=== PATIENT | male | born 2005 | race Caucasian/White ===

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

== ENCOUNTER 2025-03-23 03:44 | Emergency (ER) | payer OTHER, SELFPAY ==
--- NOTE | 2025-03-23 03:47 | ED.LOWEXIN ---
HPI - Extremity Injury (Lower) General Time Seen by Provider: 03:47 Date Seen: 03/23/25 Chief Complaint: Extremity Pain/Injury, Lower Stated Complaint: Left ankle pain Time Seen by Provider: 03/23/25 03:47 Source: patient Mode of arrival: ambulatory Limitations: no limitations History of Present Illness HPI Narrative: 19-year-old male who presents today with left ankle pain. Patient was running up hill couple hours ago and inverted the ankle, says he felt a crack ?like when you crack your back?. Gradual onset of pain and swelling since then. No other injuries. Related Data Home Medications ?Medication ?Instructions ?Recorded ?Confirmed methylphenidate HCl 27 mg 27 mg PO DAILY 03/23/25 03/23/25 tablet,extended release 24 hr sertraline 50 mg tablet 50 mg PO DAILY 03/23/25 03/23/25 Allergies Allergy/AdvReac Type Severity Reaction Status Date / Time No Known Drug Allergies Allergy Verified 11/09/22 19:42 PFSH PFSH Social History Smoking Status: Never smoker How often do you have a drink containing alcohol: never How often do you have six or more drinks on one occasion: Never AUDIT-C Alcohol total score: 0 Non-prescribed substance use: denies use Exam Narrative: Exam Narrative: General: well nourished , NAD Head: Atraumatic and normocephalic ENT: External ears and external nose are normal Eyes: Conjunctiva clear, pupils are equal reactive, external ocular motions are intact Neck: Full spontaneous range of motion of the neck Lungs: No respiratory distress Musculoskeletal: Swelling over the distal anterior lateral lower leg, no tenderness of the medial or lateral malleolus Neurologic: No gross focal neurologic deficits Skin: No rashes Psych: Mood and affect are appropriate Const: Vital Signs, click to edit/add: Vital Signs - 24 hr 03/23/25 03:49 Temperature 98.3 F Pulse Rate [Right Pulse Oximeter] 89 Respiratory Rate 18 Blood Pressure [Le ft Upper Arm] 132/70 Pulse Oximetry 100 Oxygen Delivery Me thod Room Air Course Course ED Course: Patient seen examined, presents with left ankle pain after injury a couple hours ago, gradual onset pain and swelling. On exam there is tenderness and swelling over the distal fibula, no tenderness or swelling around the lateral or medial malleoli. Area of swelling is not typical for ankle sprain, consider distal fibula fracture. X-rays are ordered. Reevaluation(s) Time of Reevaluation #1: 04:10 Reevaluation #1: X-ray of the tibia and fibula demonstrates a nondisplaced distal distal fibula fracture. Patient will be nonweightbearing in a walking boot and follow-up with orthopedics. Vital Signs Vital signs: Initial Vital Signs Temperature 98.3 F 03/23/25 03:49 Temperature Source Temporal Artery Scan 03/23/25 03:49 Pulse Rate 89 03/23/25 03:49 Respiratory Rate 18 03/23/25 03:49 Blood Pressure 132/70 03/23/25 03:49 Blood Pressure Mean 90 03/23/25 03:49 Blood Pressure Position Sitting 03/23/25 03:49 Pulse Oximetry 100 03/23/25 03:49 Oxygen Delivery Method Room Air 03/23/25 03:49 Vital Signs Temperature 98.3 F 03/23/25 03:49 Pulse Rate 89 03/23/25 03:49 Respiratory Rate 18 03/23/25 03:49 Blood Pressure 132/70 03/23/25 03:49 Pulse Oximetry 100 03/23/25 03:49 Oxygen Delivery Method Room Air 03/23/25 03:49 Temperature 98.3 F 03/23/25 03:49 Pulse Rate 89 03/23/25 03:49 Respiratory Rate 18 03/23/25 03:49 Blood Pressure 132/70 03/23/25 03:49 Pulse Oximetry 100 03/23/25 03:49 Oxygen Delivery Method Room Air 03/23/25 03:49 Discharge Plan Discharge Clinical Impression: Fracture of distal end of fibula Patient Disposition: Home, Self-Care Condition: Stable Instructions: Ankle Fracture (DC) Additional Instructions: No weight-bearing, wear boot until you follow-up with orthopedics. Call orthopedics on Sunday for follow-up appointment [phone] Activity Level: No Weight Bearing Discharge Diet: Regular Prescriptions: No Action sertraline 50 mg tablet 50 mg PO DAILY Rx Instructions: take 1 1/2 tablets a day methylphenidate HCl 27 mg tablet extended release 24hr 27 mg PO DAILY Follow Up/Referrals: Provider,Not a Local [Non-Staff, Family Practice] Stand Alone Forms: MyHealth Info Instructions
--- OUTSIDE RECORDS SUMMARY | 2025-03-23 03:47 | XMS_ITS | Clinical Summary ---
Author Organization [facility] Address [address] [place] [id number] Care Team Providers Care Data Entry Assistant Name Role Phone Vani Marr Primary Care Provider Allergies No known active allergies Medications methylphenidate (Concerta) 27 mg extended-release tabletIndications :ADHD (attention deficit hyperactivity disorder), inattentive type Take 1 Tablet (27 mg) by mouth once daily. 15 Tablet 4 Active methylphenidate (Concerta) 27 mg extended-release tabletIndications :ADHD (attention deficit hyperactivity disorder), inattentive type Take 1 Tablet (27 mg) by mouth once daily. Osmotic 30 Tablet 4 Active methylphenidate ER (Concerta) 27 mg extended release tabletIndications :ADHD (attention deficit hyperactivity disorder), inattentive type Take 1 Tablet (27 mg) by mouth once daily. 30 Tablet 5 Active sertraline (ZOLOFT) 50 mg tabletIndications :Anxiety Take 1.5 Tablets (75 mg) by mouth once daily in the morning. 135 Tablet 1 5 Active methylphenidate ER (Concerta) 27 mg extended release tabletIndications :ADHD (attention deficit hyperactivity disorder), inattentive type Take 1 Tablet (27 mg) by mouth once daily. 30 Tablet 5 03/03/20 25 triamcinolone 0.1 % creamIndications: Rash and nonspecific skin eruption Use on the affected areas bid for 2-3 weeks. Do not use on the face. 80 g 5 02/26/20 hydrocortisone 2.5 % creamIndications: Rash and nonspecific skin eruption Apply topically to affected area(s) two times daily for 7 days. 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 Office Visit [facility] [address] [place] [address] Vani Marr PA Medication Management (concerta) 01/02/2025 Travel from Last 3 Months Immunizations Immunization Administration Dates Next Due AMB Influenza, IIV4 PF (=>6 mos Flulaval,Fluzone Fluarix)(Flu Clinic Only) 07/30/2018 DTaP 11/05/2006, 5,2005,06/26 DTaP-IPV (Kinrix) 05/24/2010 HIB-HepB (Comvax) 04/27/2006,2005,06/26/20 05 HPV 9 (Gardasil 9) 10/05/2023,10/11/2022 Hepatitis A (Peds) 04/22/2008,04/29/2007 Inactivated Polio Vaccine 2005,2005, 2005 Influenza A (H1N1), Inactiva duran (Age >=3 Years) 09/27/2009,08/26/2009 Influenza Virus, Unspecified 08/27/2006,07/23/20 06 Influenza, IIV3 (Age 6-35 mos) 3,06/30/2011,07/29/2010,08/19,08/27/2006,07/23/2006 Influenza, IIV4 09/17/2023, 2,10/11/2021,07/21,07/16/2019,07/28/2016,07/30/2015 Influenza, IIV4 (=>6mos) MDV 07/09/2017 Influenza,LAIV4 Live Intrana rufus (Flumist) 07/06/2014,06/12/2012,07/01/2009,08/03 MENINGOCOCCAL VACCINE 2 VIAL 2MO-55YO (MENVEO) 10/11/2021 MMR 04/27/2006 MMRV 05/24/2010 Meningococcal Vaccine (Menomune) 06/27/2016 Pneumococcal conj 7-Valent (Prevnar 7) 0 07/23/2006,2005,2005,06/26 Tdap 06/23/2022,06/27/2016 Varicella Vaccine 04/27/2006,04/27/2006 Family History Medical History Relation Name Comments Allergies Father Heart Disease Father cardiomyopathy Allergies Mother Relation Name Status Comments Father Mother Social History Tobacco Use Types Packs/Day Years Used Date Smoking Tobacco: Never Passive Smoke Exposure: Never Smokeless Tobacco: Never Tobacco Cessation:Counseling Given: Not Answered Alcohol Use Standard Drinks/Week Comments Yes 0 (1 standard drink = 0.6 oz pur e alcohol) 4-6 drinks every couple weeks PHQ-2 Answer Date Recorded PHQ-2 TOTAL SCORE 3 09/19/2024 Social Connections Answer Date Recorded Frequency of Communication with Friends and Fami ly 0 07/06/2023 Financial Resource Strain Answer Date R ecorded Difficulty of Paying Living Expenses 3 07/06/2023 Difficulty of Paying Living Expenses Not on file 07/06/2023 Food Insecurity Answer Date Recorded Worried About Running Out of Food in the Last Ye ar 1 07/06/2023 Transportation Needs Answer Date Record ed Lack of Transportation (Medical) 1 07/06/2023 Housing Stability Answer Date Recorded Unable to Pay for Housing in the Last Year 1 07/06/2023 Sex and Gender Information Value Date Recorded Sex Assigned at Not on file Legal Sex 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 Gender Identity Not on file Sexual Orientation Not on file Obstetrics History Last Filed Vital Signs Vital Sign Reading Time Taken Comments Blood Pressure 127/72 02/18/2025 6:20 PM CDT Pulse 72 02/18/2025 6:20 PM CDT Temperature 36.8 C (98.3 F) 02/18/2025 6:20 PM CDT Respiratory Rate 16 02/18/2025 6:20 PM CDT Oxygen Saturation 99% 02/18/2025 6:20 PM CDT Inhaled Oxygen Concentration - - Weight 75 kg (165 lb 6.4 oz) 02/18/2025 6:20 PM CDT Height 169.8 cm (5' 6.85) 09/07/2023 9:02 AM CS T Body Mass Index - - Plan of Treatment Health Maintenance Due Date Last Done Comments HIV for age 15-65 2020 Hepatitis C screening for age 18-79 2023 Well Child Check for age 3-20 10/11/2023 10/11/2022, 10/11/2021, 07/21/2020, Additional history exists HPV series for age 9-26 (3 - Male 3-dose series) 12/28/2023 10/05/2023, 10/11/2022 COVID-19 vaccine series ( season) 2024 05/29/2021, 05/08/2021 BMI (ht and wt on same day) for age 18+ 09/07/2024 09/07/2023, 07/30/2023 Influenza Vaccine (Season Ended) 2025 09/17/2023, 10/11/2022, 10/11/2021, Additional history exists Depression screening for age 12+ 09/19/2025 09/19/2024, 02/12/2023, 10/11/2022, Additional history exists Tetanus booster 06/23/2032 06/23/2022, 06/27/2016 Hepatitis B series for 19+ Completed 04/27, 2005, 2005 Pneumococcal series for age 6-49 Aged Out 07/23/2006, 2005, 2005, Additional history exists No longer eligible based on patient's age to complete this topic Meningococcal series for age 11-21 Completed 10/11/2021, 06/27/2016 Tdap Completed 06/23/2022, 06/27/2016 Procedures Procedure Name Priority Date/Time Associated Diagnosis Comments JAMIL PREP,SKIN,HAIR,NAIL Routine 02/18/2025 6:54 PM CDT Rash and nonspecific skin eruption from Last 3 Months Results * JAMIL PREP,SKIN,HAIR,NAIL (02/18/2025 6:54 PM CDT) OBSERVATION No fungal elements seen 03/03/2025 9:16 AM CDT [facility] Other SPECIMEN FROM SKIN OBTAINED BY SCRAPING / Unknown Non-Blood / Unknown 02/18/2025 6:54 PM CDT 02/18/2025 7:12 PM CDT us Paulie Stephens [facility] MICROBIOLOGY Final R esult [facility] [address] [place] [id number], from Last 3 Months Insurance [id number] [facility] [address] [facility] [id number] [place] [id number] Care Teams Data Entry Assistant Relationship Specialty Start Date End Date Vani Marr PA [address] [place] [address] PCP - General Family Practice 06/27/16
--- OUTSIDE RECORDS SUMMARY | 2025-03-23 03:47 | XMS_ITS | Clinical Summary ---
Author Organization [facility] Address [address] [place] [address] Care Team Providers Care Tip Stretcher Name Role Phone Unavailable Primary Care Provider Unavailabl e Source Comments You are receiving this document as you are listed as the primary care provider,follow-up provider, or the patient has been referred to you for consultation.This is in compliance with the Medicare and[facility] Incentive Program,which states Providers who transition their patient to another setting of careor provider of care or refers their patient to another provider of care shouldprovide summary care record for each transition of care or referral. [facility] Allergies No known active allergies Medications propranolol (INDERAL) 10 MG tablet TAKE 1 TABLET BY MOUTH 30 MINUTES PRIOR TO PERFORMANCE/ PRESENTATION 08/11/2024 Active methylphenidate (CONCERTA) 27 MG controlled release tablet Take 1 Tablet (27 mg) by mouth daily. 07/27/2024 Active Social History Tobacco Use Types Packs/Day Years Used Date Smoking Tobacco: Never Passive Smoke Exposure: Never Tobacco Cessation:Counseling Given: Not Answered Sex and Gender Information Value Date Recorded Sex Assigned at Not on file Legal Sex Male 5:52 AM CDT Gender Identity Not on file Sexual Orientation Not on file Last Filed Vital Signs Vital Sign Reading Time Taken Comments Blood Pressure 118/72 08/18/2024 2:22 PM CDT Pulse 95 08/18/2024 2:22 PM CDT Temperature 37.3 C (99.2 F) 08/18/2024 2:22 PM CDT Respiratory Rate 18 08/18/2024 2:22 PM CDT Oxygen Saturation 97% 08/18/2024 2:22 PM CDT Inhaled Oxygen Concentration - - Weight - - Height - - Body Mass Index - - Plan of Treatment Health Maintenance Due Date Last Done Comments Hep C Screening (Preventive Services) 2005 MenB Immunization Discussion 2005 HIV Screening (Preventive Services) 2021 Adult Preventive Visit 2023 HPV Vaccine (3 - Male 3-dose series) 12/28/2023 10/05/2023, 10/11/2022 HepB Vaccine (1) 2024 COVID-19 Vaccine (3 - season) 2024 05/29/2021, 05/08/2021 Influenza Vaccine (Season Ended) 2025 09/17/2023, 10/11/2022, 10/11/2021, Additional history exists DTaP/Tdap/Td Vaccine (8 - Tdap) 06/23/2032 06/23/2022, 06/27/2016, 05/24/2010, Additional history exists Zoster/Shingles Vaccine (1 of 2) 2055 Hib Vaccine Completed 04/27/2006, 07/30, 2005 Pneumococcal Vaccine Aged Out 07/23/2006, 2005, 2005, Additional history exists No longer eligible based on patient's age to complete this topic HepA Vaccine Completed 04/22/2008, 04/29/2007 IPV (Polio) Vaccine Completed 05/24/2010, 2005, 2005, Additional history exists MCV4 Vaccine Completed 10/11/2021, 06/27/2016 Insurance [id number] [place] [id number] [facility]
[2025-03-23 03:49] VITALS: BP 132/70; PULSE 89; RESP 18; TEMP 36.8; O2SAT 100; BMI 26.6
--- NOTE | 2025-03-23 03:51 | CRLHL7_ITS ---
For Patients: As a result of the Century Cures Act, medical imaging exams and procedure reports are released immediately into your electronic medical record. You may view this report before your referring provider. If you have questions, please contact your health care provider. Indication: Ankle pain status post trauma Technique: Two views the left tibia and fibula were acquired. Please be aware that this is not a formal ankle study. Comparison: There are no prior studies for comparison Findings: As described below Impression: 1. Obliquely oriented fracture of the distal fibula. No widening of the syndesmosis or mortise. Regional soft tissue swelling. 2. No fracture seen proximal to the distal fibula. 3. Regional soft tissue swelling. No gas within soft tissues. No radiopaque foreign body. Dictated by Dylon Puentes MD @ 03/23/2025 4:16:35 AM (Electronically Signed)
[2025-03-23 04:36] VITALS: BP 128/68; PULSE 84; RESP 18; TEMP 36.8; O2SAT 100
[2025-03-23 04:37] VITALS: BP 128/68; PULSE 84; RESP 18; TEMP 36.8
== END 2025-03-23 04:37 | disposition home or self-care (01) ==
PROVIDERS: Emergency Provider Family Medicine; PCP Physician Assistant Medical
DX: S82.832A Other fracture of upper and lower end of left fibula, initial encounter for closed fracture (principal); W18.30XA Fall on same level, unspecified, initial encounter; Y93.02 Activity, running
CPT/HCPCS: 73590; 99283; 99284

== ENCOUNTER 2025-04-03 07:57 | Day surgery (SDC) | payer OTHER, SELFPAY ==
[2025-04-03] VITALS (20 sets, daily range): BP systolic 120–162; BP diastolic 52–94; PULSE 69–103; RESP 14–18; TEMP 36.4–37.2; O2SAT 96–100; BMI 27.4
[2025-04-03] MEDS: LACTATED RINGERS 1000 ML 1,000 ML 100 ML IV (08:15)
[2025-04-03] MEDS: SODIUM CHLORIDE 0.9 % (FLUSH) 10 ML SYRINGE IVF (08:30)
--- NOTE | 2025-04-03 09:45 | CRLHL7_ITS ---
For Patients: As a result of the Cures Act, medical imaging exams and procedure reports are released immediately into your electronic medical record. You may view this report before your referring provider. If you have questions, please contact your health care provider. Indication: Left ankle ORIF Technique: Three fluoroscopic images of the left ankle. Fluoroscopic time 15.6 seconds. IMPRESSION: Fluoroscopic guidance for open reduction internal fixation of distal fibular fracture. Dictated by Baldomero Quintanilla MD @ 04/06/2025 11:22:22 AM (Electronically Signed)
--- NOTE | 2025-04-03 10:09 | W.PM.H&PU ---
History & Physical Update History & Physical Update H&P Reviewed and patient assessed: No changes noted
--- NOTE | 2025-04-03 10:26 | P.ANES_ITS ---
Anesthesia Charges Start Date/Time Anesthesia Start Date: 04/03/25 Anesthesia Start Time: 10:41 Stop Date/Time Anesthesia Stop Date: 04/03/25 Anesthesia Stop Time: 12:51 Coding CPT Codes CPT Codes: ANESTH LOWER LEG BONE SURG - 73997 ([id number]) P2 - PATIENT W/MILD SYST DISEASE, QK - TELEPHONE REPAIRER 2-4 CNCRNT ANES PROC, QX - TENNIS PROFESSIONAL SVC W/ MD MED DIRECTION
--- NOTE | 2025-04-03 10:26 | W.ANESCHARGE ---
Anesthesia Charges Start Date/Time Anesthesia Start Date: 04/03/25 Anesthesia Start Time: 10:41 Stop Date/Time Anesthesia Stop Date: 04/03/25 Anesthesia Stop Time: 12:51 Coding CPT Codes CPT Codes: ANESTH LOWER LEG BONE SURG - 49139 ([id number]) P2 - PATIENT W/MILD SYST DISEASE, QK - MANAGER POST 2-4 CNCRNT ANES PROC, QX - FAMILY AND CONSUMER EDUCATION TEACHER SVC W/ MD MED DIRECTION
--- NOTE | 2025-04-03 10:56 | PM.ORPRC ---
Procedure Note Date of procedure: 04/03/25 Procedure: PREOPERATIVE DIAGNOSES: 1. Left ankle distal fibula fracture (with bimalleolar equivalent) - unstable on stress imaging POSTOPERATIVE DIAGNOSES: 1. Left distal fibula fracture (with bimalleolar equivalent) - unstable on stress imaging PROCEDURE: 1. Left ankle lateral malleolus open reduction with internal fixation. 2. Intraoperative fluoroscopy <53 minutes (CPT CODE 7600) SURGEON: Shaquille Red MD TOP COATER: Shy Gallo P.A.-C.; Of note, an commercial real estate assistant was critical for this case to aid in patient positioning, leg manipulation, tissue retraction, closure, and splinting. ANESTHESIA: Spinal IMPLANTS: Arthrex distal fibular 4-hole locking plate with 2.7 distal locking screws and 3.5mm proximal locking and nonlocking screws; 3.0 mm lag screw. TOURNIQUET: 59 minutes at 250 mmHg. INDICATIONS: The patient is a pleasant 19-year-old male who sustained a left ankle injury in the recent. Workup included x-rays which revealed an unstable ankle fracture. Given these findings, surgery was recommended to stabilize the ankle and allow for anatomic healing. FINDINGS: Closed, displaced, bimalleolar equivalent, lateral malleolus ankle fracture. Intact syndesmosis. PROCEDURE: Following a thorough discussion of the risks, benefits, and alternatives to surgery; informed consent was obtained, and the operative extremity was marked. Regional nerve block was performed by anesthesia staff . The patient was then brought to the operating room, where spinal anesthesia was administered. Knee was then placed supine on the operating table. 2 g IV Ancef was administered preoperatively for prophylaxis . The operative extremity was then prepped and draped in the appropriate sterile fashion . A surgical time-out was performed confirming patient identity, surgical site, and surgical procedure. The operative extremity was elevated and exsanguinated, and the tourniquet inflated to 250 mmHg. A longitudinal incision was made overlying the distal fibula. Sharp incision was carried through skin and subcutaneous tissue, while protecting any crossing neurologic structures. The fracture was identified, and cleared of interposed periosteum and fracture hematoma. The surgical site was thoroughly irrigated with normal saline. The fracture was reduced and temporarily held with with a reduction clamp. A 3.0 mm cortical screw was placed across the fracture site in a lag fashion. Next a 4 hole distal fibular locking plate was selected and provisionally fixed to the distal fibula with MARINE Rojas. Fluoroscopic imaging was obtained which confirmed anatomic reduction of the fracture and good placement of the plate. The plate was fixed proximally with a nonlocking 3.5 mm cortical screw. It was then fixed distally with 2.7 mm unicortical locking screws. Two additional 3.5 mm locking screws were then placed proximally. Fluoroscopic imaging was used to confirm correct plate position and screw length. After the plate was secured, external rotation stress test was applied which confirmed intact send most this with no widening of the syndesmosis or medial clear space. Final fluoroscopic images were obtained which confirmed anatomic reduction of the fracture with good position of plate and screws. The wound was thoroughly irrigated with normal saline. Deep subcutaneous tissues were closed over the plate with 0 Vicryl [id number] interrupted sutures. The tourniquet was deflated. Total tourniquet time was 59 minutes. Hemostasis achieved with electrocautery. Wound was again irrigated with normal saline. Subcutaneous tissues were closed with 3-0 Vicryl for the subcutaneous tissues, and 2-0 stratafix for subcuticular layers completed the closure. Dermabond was applied followed by application of sterile dressings and a bulky Ramirez splint. The patient was awoken from anesthesia and transferred to the PACU in stable condition. PLAN: 1. Ice and elevate operative extremity. 2. Keep splint clean and dry 3. Tylenol and oxycodone for pain as needed. 4. Toe touch weight-bearing operative extremity. 5. Discharge home. 6. Follow up in orthopedic clinic in 10-14 days for splint removal and wound check. -will transition back to Cam boot and advance weight-bearing as tolerated at 1st postoperative visit. -begin formal physical therapy in approximately 2 weeks.
[2025-04-03] MEDS: BUPIVACAINE 0.5 %/EPI 1:200K 30 ML INJECTION (12:26)
[2025-04-03] MEDS: MEPERIDINE 25 MG/ML INJ 12.5 MG IVP (12:50)
--- NOTE | 2025-04-03 12:51 | P.ANES_ITS ---
Anesthesia Charges Start Date/Time Anesthesia Start Date: 04/03/25 Anesthesia Start Time: 10:41 Stop Date/Time Anesthesia Stop Date: 04/03/25 Anesthesia Stop Time: 12:52 Coding CPT Codes CPT Codes: ANESTH LOWER LEG PROCEDURE - 90112 ([id number]) P2 - PATIENT W/MILD SYST DISEASE, QK - CLINICAL TRANSFORMATION SPECIALIST 2-4 CNCRNT ANES PROC
--- NOTE | 2025-04-03 12:51 | W.ANESCHARGE ---
Anesthesia Charges Start Date/Time Anesthesia Start Date: 04/03/25 Anesthesia Start Time: 10:41 Stop Date/Time Anesthesia Stop Date: 04/03/25 Anesthesia Stop Time: 12:52 Coding CPT Codes CPT Codes: ANESTH LOWER LEG PROCEDURE - 18459 ([id number]) P2 - PATIENT W/MILD SYST DISEASE, QK - RECRUIT INSTRUCTOR 2-4 CNCRNT ANES PROC
[2025-04-03] MEDS: fentaNYL 100 MCG/2 ML inj 50 MCG IVP ×2 (12:55→13:05)
[2025-04-03] MEDS: OxyCODONE/APAP 5-325 TABLET PO ×2 (13:46→14:38)
[2025-04-03] MEDS: MIDAZOLAM HCL 1 MG/ML inj IVP (15:42)
[2025-04-03] MEDS: fentaNYL 100 MCG/2 ML inj IVP (15:42)
--- NOTE | 2025-04-03 16:00 | P.NB_ITS ---
Nerve Block Nerve Block Time Seen by Provider: 15:40 Date Seen: 04/03/25 Type of block requested by surgeon for post-operative analgesia: popliteal Side: left Time out performed: Yes Verification of patient name: Yes Verification of date of : Yes Site marking: site marked Name of person performing procedure: roberto xavier Continuous monitoring Was continuous monitoring of O2 sat, B/P, supply chain program manager, recorded every 15 minutes?: Yes Procedure Checklist: sterile prep, needles and gloves Ultrasound guided. Images saved: Yes Medications given in 5ml increments after negative aspiration: Marcaine %: 0.25 mL: 20 Needle gauge: 20 Patient tolerated procedure well: Yes Block Charges Block Charge (with Pro Fee): Sciatic Nerve Use of Ultrasound Machine for Block: Yes- US Guidance/pain block
--- NOTE | 2025-04-03 16:32 | SUR.PHASEII ---
TIME?OUT:?1540 PT/Nata James RN/Hailee Toth MDA?VERIFICATION?OF?SURGICAL?SITE left ankle,?PROCEDURE,?AND?CONSENT OBTAINED?PRIOR?TO?INVASIVE?PROCEDURE.
--- NOTE | 2025-04-04 13:38 | PC.NURSE ---
Patient called and stated that pain is uncontrolled with pain medications ordered. Called and spoke with Yessy COLEMAN and stated that patient could increase oxycodone 5 mg to 1-2 tabs every 4 hours as needed for pain. If not controlled can be seen in the emergency room. Patient updated.
== END 2025-04-03 16:37 | disposition home or self-care (01) ==
PROVIDERS: Visit Provider Orthopaedic Surgery
PROC: (CPT 27792; principal; 2025-04-03 09:45)
DX: S82.842A Displaced bimalleolar fracture of left lower leg, initial encounter for closed fracture (principal)
CPT/HCPCS: 27792; G8918; 01462; 01480; 64445; 73610; 76000; 76942; A9270; C1713; J0665; J1100; J1171; J2175; J2250; J2704; J3010; J3490; J7120

== ENCOUNTER 2025-05-08 14:45 | Outpatient (RCR) | payer OTHER, SELFPAY ==
--- NOTE | 2025-04-27 12:23 | PT.OPEX ---
[facility] Eval PT [facility] Outpatient Eval Start: 04/27/25 10:42 Freq: Status: Active Protocol: Document 04/27/25 10:42 (Rec: 04/27/25 12:18 [id number]) E-signed By Ruby Aragon [facility] Outpatient Evaluation Insurance Information Recert Due Date 07/28/25 Insurance Name [facility] Medical Diagnosis Z98.890 Other specified post procedural states Treating Diagnosis M25.672 Stiffness of Ankle Left M25.572 Pain in left ankle and joints Z74.9 Impaired Mobility Imaging Report 03/23 XR Left Ankle: Obliquely oriented fracture of the Information distal fibula. No widening of the syndesmosis or mortise. Regional soft tissue swelling. Referring MD Shy Gallo PA-C Subjective Preferred Name Abdoul Subjective Initial subjective: Abdoul is 20 year old male who presented s/p left ankle ORIF on 04/03/25 after falling while running up hill. Initially, Abdoul was using crutches at [facility] but has been using walking boot and WBAT since 04/10/25. Abdoul walks without boot occasionally within the house. YAYO: fall when running up a hill and overstretched ankle. Abdoul heard a lot of cracking and was limping afterwards. Aggravating factors: certain movements Alleviating factors: no pain at rest PMH: ADHD Work status: not employed Pt goals: To get back to [facility]. Previously doing 4x/ week [employer] access code: [email or web address] Pain Comments 0/10 currently; 2-3/10 with certain movements. Date of Last 04/21/25 Physician Visit Current Work Status Unemployed Precautions Treatment May advance to WB as tolerated when pt is ready; quad Precautions/ strength, ankle PROM/AROM; no ankle strengthening until Contraindications ortho follow-up and cleared by MD in ~ 1 month Weight Bearing Weight Bear as Tolerated Status Therapy Limitations/ Not Limited Systems Review Objective Range of Motion Ankle AROM (R/L):? -DF (knee straight):?17 / -PF:?60 /45 -Inv:? -Yaz:?18 /10 Ankle PROM (R/L):? -DF (knee straight):?16 -PF:?60 -Inv:?22 -Yaz: 12 Strength Ankle Strength (R/L):? -DF: R: 5/5, L: 3-/5?(observed on L, not formally tested) -PF (uni heel raise): R: 20+ reps, L: not formally tested ? -Inv: R: 5/5, L: 3-/5?(observed on L, not formally tested) -Yaz: R: 5/5, L: 3-/5?(observed on L, not formally tested) Swelling figure 8 circumference: R= 53 cm; L= 54.8 cm Balance & Gait WBAT with walking boot Other/Pertinent Ankle AROM (R/L):? Objective -DF (knee straight):? -PF:?60 /45 -Inv:? -Yaz:? Ankle PROM (L):? -DF (knee straight):?16 -PF:?60 -Inv:?22 -Yaz: 12 Ankle Strength (R/L):? -DF: R: 5/5, L: 3-/5?(observed on L, not formally tested) -PF (uni heel raise): R: 20+ reps, L: not formally tested ? -Inv: R: 5/5, L: 3-/5?(observed on L, not formally tested) -Yaz: R: 5/5, L: 3-/5?(observed on L, not formally tested) figure 8 circumference: R= 53 cm; L= 54.8 cm Functional Test FAAM: 48/84= 57% Performed & Score Assessment Assessment/ Patient is a 20-year-old male presenting to physical Impression therapy for evaluation and treatment of left ankle s/p ORIF with DOS of 04/03/25. Patient presents with limited ROM, weakness, impaired functional mobility, impaired gait, and pain. These impairments are limiting the patient's ability to walk without boot and participate in [employer]. Patient appears motivated to participate in PT and presents with good prognosis to improve mobility, strength, proprioception and return to functional activities with skilled physical therapy intervention.? Educated patient on proper form and muscle activation throughout session in order to optimize muscle function and proper body mechanics.? Primary Functional flexibility, weakness, impaired gait, inability to Limitations participate in [employer] Plan of Care Rehabilitation Good Potential Physical Therapy STG's to be met in 2-4 weeks: Goals 1.) Pt will increase left dorsiflexion AROM by 5 degrees 2.) Pt will increase left ankle plantarflexion by 10 degrees 3.) Pt's left ankle swelling will decrease to 54 cm or less LTG's to be met in 12-16 weeks: 1.) Pt will be independent and compliant with HEP 2.) Pt will demonstrate left ankle AROM that is WNL and symmetrical to right ankle 3.) Pt will demonstrate left ankle strength that is WNL and symmetrical to right ankle. 4.) Pt will be able to return to previous recreational activities without increased pain. Coordination/ Referral Source Communication With Treatment Plan/ Gait Training,Ice/Cold/Vasopneumatic,Joint Mobilization Direct Interventions ,Manual Therapy,Neuromuscular Re-ed,Therapeutic Activities,Therapeutic Exercises Frequency/Duration 1-2x/week for up to 12-16 weeks Patient Will Be Completion of LTG(s),Skills Plateau,Independent w/HEP, Discharged From Independently Progressing Therapy Evaluation Billing Untimed Code 25 Treatment Minutes PT Eval No Charge No Complexity Low Certification Information Initial 04/27/25 Certification Date Ending Certification 07/28/25 Date Provider Signature Communication Only-No Signature Required Required
== END 2025-09-05 23:59 | disposition home or self-care (01) ==
PROVIDERS: Visit Provider Physician Assistant Surgical
DX: Z48.89 Encounter for other specified surgical aftercare (principal); M25.572 Pain in left ankle and joints of left foot; Z51.89 Encounter for other specified aftercare
CPT/HCPCS: 97110; 97161